=== PATIENT | male | born 1985 | race Caucasian/White ===

== ENCOUNTER 2016-12-23 16:40 | Emergency (ER) | payer SELFPAY ==
[~2016-12-23] VITALS: Ht 175.3 cm; Wt 84.6 kg
[~2016-12-23 16:40] MED LIST: NO REGULAR MEDS
[2016-12-23 16:43] VITALS: Ht 175.3 cm; Wt 84.6 kg
--- OUTSIDE RECORDS SUMMARY | 2016-12-23 16:45 | XMS REPORT | Continuity of Care Document ---
Author Author [facility] Address Unknown Phone Unavailable Allergies Active Description Code Type Severity Reaction Onset Reported/Identified Relationship to Patient Clinical Status Yes No Known Drug Allergies [id number] Drug Allergy Unknown N/ A 05/24/2015 Medications Problems Date Dx Coded Attending Type Code Diagnosis Diagnosed By 06/19/2015 JYOTI BO DO Ot 719.43 06/19/2015 JYOTI BO DO Ot 873.8 06/19/2015 JYOTI BO DO Ot 884.0 06/19/2015 JYOTI BO DO Ot E849.0 06/19/2015 JYOTI BO DO Ot E882 Procedures Results Encounters ACCT No. Visit Date/Time Discharge Status Pt. Type Provider Facility Loc./Unit Complaint [id number] 05/24/2015 15:13:00 2014 23:59:59 CLS Outpatient [place] JYOTI HARPER [facility] [id number] 05/24/2015 15:06:00 2014 17:29:00 DIS Emergency [place] DO [facility] ED
--- OUTSIDE RECORDS SUMMARY | 2016-12-23 16:53 | XMS REPORT | Continuity of Care Document ---
Author Author [facility] Address Unknown Phone Unavailable Allergies Active Description Code Type Severity Reaction Onset Reported/Identified Relationship to Patient Clinical Status Yes No Known Drug Allergies [id number] Drug Allergy Unknown N/ A 05/24/2015 Medications Problems Date Dx Coded Attending Type Code Diagnosis Diagnosed By 06/19/2015 JYOTI BO DO Ot 719.43 06/19/2015 JYOTI BO DO Ot 873.8 06/19/2015 JYOTI BO DO Ot 884.0 06/19/2015 JYOTI BO DO Ot E849.0 06/19/2015 JYOTI BO DO Ot E882 Procedures Results Encounters ACCT No. Visit Date/Time Discharge Status Pt. Type Provider Facility Loc./Unit Complaint [id number] 05/24/2015 15:13:00 2014 23:59:59 CLS Outpatient [place] JYOTI HARPER [facility] [id number] 05/24/2015 15:06:00 2014 17:29:00 DIS Emergency [place] DO [facility] ED
[2016-12-23] MEDS ORDERED: KETOROLAC 60mg/2ml INJECTION IM ONE (17:30)
[2016-12-23] MEDS ORDERED: ORPHENADRINE 60mg/2ml INJECTION IM ONE (17:30)
--- NOTE | 2016-12-23 17:31 | ERPDOC ---
Departure Disposition Decision Date: December 23, 2016 Disposition Decision Time: 19:55 (AYO KC DO) Disposition: 01 DISCHARGED HOME, SELF-CARE Impression Impression (CLAUDETTE CLEARY DO) Impression: Primary Impression: Scapula fracture Encounter type: initial encounter Scapula location: unspecified part of scapula Fracture type: closed Laterality: left Qualified Codes: S42.102A - Fracture of unspecified part of scapula, left shoulder, initial encounter for closed fracture Severity: Moderate (AYO KC DO) Condition: Improved Seen By: Physician only (AYO KC DO) Referrals: [facility] 1 Day Patient Instructions: Scapular Fracture (ED) Problems/Meds/Labs Reviewed?: Yes Medications reviewed and manag: Yes (AYO KC DO) Mental Status: Alert, Oriented (CLAUDETTE CLEARY DO) Follow up care ordered?: Yes Mental Status: Alert, Oriented (AYO KC DO) Scripts Hydrocodone/Acetaminophen ([place] 7.5-325 Tablet) 7.5-325 Tablet 1 TAB PO Q4HR for 3 Days, #18 TAB 0 Refills Prov: AYO KC DO 12/23/16 HPI - Fall/Injury General Chief Complaint: Fall Stated Complaint: FALL, LEFT SIDE PAIN Time Seen by Provider: 16:47 Source: patient Exam Limitations: no limitations (CLAUDETTE CLEARY DO) Time Seen by Provider: 18:55 (AYO KC DO) HPI - Fall/Injury Initial Comments 30yo man presents to the ER tonight with left shoulder pain. Pt fell off a ladder yesterday evening; has had shoulder pain ever since. Pt has been taking naproxen with some relief of his sx. Pain is getting worse, so pt presented for further eval/treatment. Occurred At: home Onset: Rapid Duration: 12-24 hrs Pain Scale: Now & Worst: 6/10 Severity: moderate Injuries/Pain Location: upper extremity, chest 1 - Pain 2 - Point TTP Context: other Loss of Consciousness: no loss of consciousness Modifying Factors: IMPROVES WITH: cold therapy, immobilization, pain medication , WORSE WITH: jarring, movement Associated Symptoms: chest pain, muscle spasms Hx of Similar Symptoms: No (CLAUDETTE CLEARY DO) Allergies: Coded Allergies: No Known Allergies (Unverified , 12/23/16) Past History Past Medical History Pt denies signifigant PMH () Pt denies signifigant PMH (AYO KC ) Surgical History Denies Surgeries () Denies Surgeries (AYO KC DO) Family History Family PMH: FOUND: other () Family History: Negative (AYO KC DO) Vaccines Hx Tetanus, Diptheria, Pertuss: Yes (12/18/11) () Social History Sexuality: female partner () Smoking Status: Never smoker Substance Use Type: does not use Alcohol Intake: none (AYO KC ) Review of Systems Constitutional Constitutional: DENIES: chills, fever (AYO KC DO) Eyes General: DENIES: erythema, exudate Lids/Accessories: DENIES: erythema, swelling (AYO KC DO) ENMT Ears: DENIES: drainage, erythema Sinuses: DENIES: congestion, pain Mouth/Throat: DENIES: painful swallowing, sore throat Teeth: DENIES: pain Jaw: DENIES: pain (AYO KC DO) Cardiovascular Cardiac: DENIES: chest pain, dyspnea on exertion Rhythm/Rate: DENIES: irregular beat, palpitations Vascular: DENIES: pedal edema, unilateral swelling (AYO KC DO) Pulmonary Respiratory: DENIES: cough, dyspnea, pleuritic chest pain, sputum (AYO KC DO) GI Upper Abdomen: DENIES: nausea, pain, vomiting Lower Abdomen: DENIES: diarrhea, pain (AYO KC DO) General: DENIES: dysuria, frequency (AYO KC DO) Musculoskeletal General: joint pain, joint swelling () Integumentary Skin: DENIES: itching, rash (AYO KC DO) Neurological General: DENIES: headache, numbness, weakness (AYO KC DO) Psychiatric Psychiatric: DENIES: emotional instability, suicidal ideation/attempt (AYO KC DO) Endocrine Endocrine: DENIES: polydipsia, polyphagia (AYO KC DO) Hematologic/Lymphatic Hematologic/Lymphatic: DENIES: frequent nosebleeds, lymphadenopathy (AYO KC DO) Allergic/Immunological Allergic/Immunoligical: DENIES: allergic reactions, hives (AYO KC ) All other Systems All Other Systems: Reviewed and Negative () Physical Exam General General Nourishment: well nourished, well developed, appears stated age, no acute distress, adult, thin General Body Habitus: well groomed () Vitals and Pain First Documented Vital Signs Date Time Temp Pulse Resp B/P Pulse Ox O2 Delivery O2 Flow Rate FiO2 12/23/16 16:43 97.8 69 16 140/67 100 Room Air (AYO KC ) Vitals and Pain Weight: Kilograms: 84.600 Height (feet): 5 Height (inches): 9.00 Triage Pain Scale: () RN VS reviewed by Provider: Yes () Normal Exams: Head: Normocephalic w/o trauma Eyes: Pupils are PERRLA w/ EOMI, No scleral icterus, irritation, or foreign bodies noted ENMT: No facial trauma, nasal exudates, pharyngeal erythema, or exudates are noted Dental: No fractured, loose, or missing teeth noted Chest/Resp: Clear all tian, with good airflow, and symmetry bilaterally CV: Regular rate and rhythm, without murmur or gallop, Pulses 2+ all extremities, capillary refill, <2 seconds all ext., no pedal edema noted Abdomen: Bowel sounds positive, soft, non-tender, non-distended, no hepatosplenomegaly, masses or bruits noted Lymphatic: No lymphadenopathy, or lymphedema noted Integumentary: No rashes, hives, or bruising noted, hair and nails, without abnormality Neurologic: Patient is alert, and oriented, cranial nerves, motor/sensory/ cerebellar, exams w/o gross deficits, to observation (AYO KC ) Neck (brief) Neck: FOUND: trachea midline, NOT FOUND: tenderness (AYO KC ) Respiratory (brief) Respiratory: FOUND: clear all tian, equal bilaterally, symmetrical, NOT FOUND : rales, wheezes () Cardiovascular (brief) Cardiac: FOUND: regular rate, regular rhythm, NOT FOUND: click, gallop, murmur , pedal edema, peripheral edema, rub Capillary Refill: <2 sec Pulses: all distal extremities, equal, strong () Abdomen (brief) Abdominal Brief: FOUND: bowel normo active x4, soft, NOT FOUND: distended, hepatosplenomegaly, pulsatile mass, tender () Musculoskeletal (brief) Comments LUE - diffusely tender to palpation about the shoulder. Slightly decreased range of motion secondary to pain. Skin is intact. Pulses intact. Sensation intact. Capillary refill less than 2. No focal bony tenderness. No erythema. No edema. No other tenderness in the left upper extremity. All other extremities are unremarkable. Pelvis stable to compression. Nontender. (AYO KC DO) Musculoskeletal Muscular: FOUND: spasm Joint : Side: Left Joint: shoulder Joint Findings: FOUND: pain, NOT FOUND: ROM limited, deformity, discoloration, instability, laceration, swelling () Supervisory Exam Head: atraumatic Eyes: PERRL Nares: no exudate Neck: trachea midline Chest: symmetric Abdomen: non-distended Neurological: no abnormal movements Skin: pink, dry Psychological: alert, appropriate () Differential Diagnoses Considering: Abrasion, Contusion, Dislocation, Fracture, Sprain, Strain () Progress Results/Orders Orders Procedure Category Date Status Time Ct Upper Extremity Lt CT 12/23/16 Taken W/O Cont 17:23 Ketorolac (Toradol) PHA 12/23/16 Complete 17:30 Orphenadrine (Norflex) PHA 12/23/16 Complete 17:30 Ct Chest W/O Contrast CT 12/23/16 Taken 18:55 Hydrocodone/Acetaminophen PHA 12/23/16 Complete ([place] 7.5/325 20:00 Sling DOUGLAS 12/23/16 Complete 19:54 (AYO KC DO) Medications Current ED Medications Ketorolac Tromethamine (Toradol) 60 mg O ONCE IM Last administered on 18:02; Start 12/23/16 at 17:30; Stop 12/23/16 at 17:31; Status DC Orphenadrine Citrate (Norflex) 60 mg O ONCE IM Last administered on 12/23/16 18:02; Start 12/23/16 at 17:30; Stop 12/23/16 at 17:31; Status DC Acetaminophen/ Hydrocodone Bitart ([place] 7.5/325) 1 tab O ONCE PO Last administered on 12/23/16t 20:00; Start 12/23/16 at 20:00; Stop 12/23/16 at 20:01; Status DC (AYO KC DO) Progress Progress Still awaiting CT of shoulder; care of pt transferred to Dr. Kc at 1815. (CLAUDETTE CLEARY DO) Progress Imaging is discussed in detail with the patient and questions are answered. Patient is noted to have a 2 cm nondisplaced inferior margin of the scapula fracture on CT of the shoulder. CT of the chest without contrast was unremarkable other than the scapular fracture. I have recommended obtaining a CTA of the chest/aorta due to the scapular fracture which the patient declines. Risks versus benefit of this is discussed in detail with the patient and family and questions are answered. Patient is given analgesic pain medication with improvement of symptoms in the emergency Department. Patient is discussed with orthopedic surgeon on-call Dr. Mcgrath who recommends placing the patient in a sling and provide analgesic pain medication and having the the patient follow-up with him in 1-2 days. Patient is placed in a sling with good alignment by the RN. Patient is distal neurovascularly intact post-application of sling. Patient is discharged home in improved condition. Patient is to follow up as instructed. Patient is to return to the emergency Department if his condition worsens or changes in any manner. Patient is aware of the risks versus benefits of declining the CT angiogram and verbalizes agreement and understanding of this. Rx for [place] was provided. Patient does not have any tenderness of the cervical/thoracic/lumbar spine. Did not strike his head and has no KC. (AYO KC DO) CLAUDETTE CLEARY DO December 23, 2016 17:31 AYO KC DO December 23, 2016 19:59
--- NOTE | 2016-12-23 18:03 | NUR ---
RADIOLOGY PT TO RADIOLOGY BY CART AT THIS TIME.
--- NOTE | 2016-12-23 18:12 | NUR ---
RETURN PT RETURNED FROM RADIOLOGY AT THIS TIME.
--- NOTE | 2016-12-23 18:30 | NUR ---
STATUS PT REPORTS A DECREASE IN PAIN FROM 8 TO [phone] AFTER MEDICATIONS ADM. DENIES FURTHER NEEDS. PROVIDER NOTIFIED. NO NEW ORDERS REC'D.
--- NOTE | 2016-12-23 19:05 | NUR ---
CT PT TO CT BY CART AT THIS TIME.
--- NOTE | 2016-12-23 19:14 | NUR ---
RETURN PT RETURNED FROM CT AT THIS TIME.
--- NOTE | 2016-12-23 19:46 | NUR ---
PROVIDER DR. ROSS AT BEDSIDE TO SPEAK WITH PT.
[2016-12-23] MEDS ORDERED: HYDR-347 PO (19:58)
[2016-12-23 20:23] VITALS: BP 111/66; PULSE 75; RESP 16; TEMP 97.8; O2SAT 95
--- NOTE | 2016-12-23 20:23 | NUR ---
DISCHARGE WRITTEN INSTRUCTIONS WITH [facility] REVIEWED AND SENT WITH PT. PT VERBALIZES UNDERSTANDING OF DI AND MEDICATION, DENIES QUESTIONS. PT AMBULATES OUT OF ER WITH STEADY GAIT ACCOMP BY AT THIS TIME.
--- NOTE | 2016-12-24 08:14 | DI ---
Indication: ITS.REASON: Fall with chest pain PROCEDURE: CT CHEST W/O CONTRAST: Encounter: Initial Comparison: None Technique: Axial CT images were performed through the chest without intravenous contrast. Coronal and sagittal two-dimensional reformats. Automated Exposure Control and Iterative Reconstruction dose reducing techniques were utilized. Findings: Lungs are clear. No pleural effusion or pneumothorax. Minimal atelectatic changes in the lungs with a somewhat rounded appearance in the right base. Central airways are patent. No pulmonary masses. No axillary or mediastinal adenopathy. Heart size is normal. No pericardial effusion. The upper abdomen shows no acute findings. Nondisplaced fracture of the left inferior scapula. Impression: Left scapular fracture. Otherwise, no acute disease process seen. There is a preliminary report by [facility]. .
--- NOTE | 2016-12-24 08:27 | DI ---
Indication: ITS.REASON: Fall from height; left shoulder pain PROCEDURE: CT UPPER EXTREMITY LT W/O CONT: Encounter: Initial Comparison: Chest CT from the same date Technique: Axial noncontrast CT imaging through the left shoulder was performed with coronal and sagittal two-dimensional reformats. Three-dimensional surface shaded volume rendered imaging was also created and reviewed. Automated Exposure Control and Iterative Reconstruction dose reducing techniques were utilized. Findings: Nondisplaced fracture of the inferior aspect of the left scapula is noted and not fully included on this exam. No additional acute fracture or dislocation. No significant hematoma or fluid collection. Lung parenchyma is evaluated on the dedicated chest CT report. Impression: Nondisplaced inferior scapular fracture. There is a preliminary report by [facility]. .
== END 2016-12-23 20:23 | disposition home or self-care (01) ==
LOC: ED 16:40
DX: S42.102A Fracture of unspecified part of scapula, left shoulder, initial encounter for closed fracture (principal); W11.XXXA Fall on and from ladder, initial encounter; Y93.9 Activity, unspecified; Y92.009 Unspecified place in unspecified non-institutional (private) residence as the place of occurrence of the external cause; Y99.8 Other external cause status
CPT/HCPCS: 96372